=== PATIENT | male | born 1985 | race Caucasian/White ===

== ENCOUNTER 2016-09-05 13:22 | Emergency (ER) | payer OTHER ==
[~2016-09-05] VITALS: Ht 182.9 cm; Wt 77.3 kg
[~2016-09-05 13:22] MED LIST: ERGOCALCIF50000 UNIT PO; FLEXERIL5 MG PO; IBUPROFEN200 M1 PO; LISINOPRIL10 MG PO; NAPROXEN500 M2 PO; NAPROXEN500 MG PO; NOHOMEMEDS; OXECTA7.5 MG PO; OXYCODONE5 MG PO
[2016-09-05 15:00] LABS: MCH 33.6 PG (29.0-34.0); MCHC 34.9 G/DL (30.0-36.0); MCV 96.2 FL (86-99); MEAN PLAT.VOLUME 9.8 uM^3 (9.0-12.4); PLATELET COUNT 240 K/uL (156-360); RBC DIS.WIDTH-CV 12.4 % (11.8-14.6); RBC DIS.WIDTH-SD 43.9 % (39-53); RED BLOOD COUNT 4.26 M/uL (4.00-5.50); WHITE BLOOD COUNT 7.6 K/uL (4.1-10.2)
[2016-09-05 15:17] LABS: CHLORIDE 102 mEq/L (99-109); SODIUM 136 mEq/L (136-147)
[2016-09-05 15:19] LABS: GLUCOSE 76 mg/dL (70-99)
[2016-09-05 15:20] LABS: ANION GAP 11 MEQ/L (2-14)
[2016-09-05 15:21] LABS: TOTAL BILIRUBIN 0.5 mg/dL (0.0-1.0)
[2016-09-05 15:22] LABS: ALKALINE PHOSPHATASE 62 IU/L (3-129)
[2016-09-05 15:23] LABS: GFR ESTIMATE (CALCULATED) > 59 mL/min/
[2016-09-05 15:24] LABS: UREA NITROGEN (BUN) 9 mg/dL (9-23)
[2016-09-05 15:26] LABS: LIPASE 69 U/L (1.0-51.0)
[2016-09-05 16:11] LABS: ADD MIUA? NO; BILIRUBIN NEGATIVE; BLOOD NEGATIVE; COLOR STRAW ((YELLOW)); GLUCOSE (STRIP) NEGATIVE; KETONES NEGATIVE; LEUKOCYTES NEGATIVE; NITRITE NEGATIVE; PROTEIN (STRIP) NEGATIVE; SPECIFIC GRAVITY 1.003 (1.000-1.030); UCUL ADDED? NO; UROBILINOGEN 0.2 MG/DL (0.2-1.0)
[2016-09-05] MEDS ORDERED: PRILOSEC20 MG PO (16:45)
[2016-09-05] MEDS ORDERED: ZOFRAN ODT4 MG PO (16:45)
[2016-09-05] MEDS ORDERED: MULTIGEN FOLIC1 EACH PO (16:45)
[2016-09-05] MEDS ORDERED: ZESTRIL10 MG PO (16:45)
[2016-09-05 17:11] VITALS: BP 158/98
== END 2016-09-05 17:14 | disposition home or self-care (01) ==
LOC: EME 13:22
DX: R74.8 Abnormal levels of other serum enzymes (principal); R20.2 Paresthesia of skin; F10.10 Alcohol abuse, uncomplicated; F17.200 Nicotine dependence, unspecified, uncomplicated; I10 Essential (primary) hypertension; S80.12XA Contusion of left lower leg, initial encounter; X58.XXXA Exposure to other specified factors, initial encounter
CPT/HCPCS: 80053; 81003; 83690; 85027; 99281; 99284

== ENCOUNTER 2017-09-01 22:23 | Emergency (ER) | payer OTHER ==
[~2017-09-01] VITALS: Ht 182.9 cm; Wt 74.7 kg
[~2017-09-01 22:23] MED LIST changes: +MULTIGEN FOLIC1 EACH PO; +PRILOSEC20 MG PO; +ZESTRIL10 MG PO; +ZOFRAN ODT4 MG PO
[2017-09-02 00:06] VITALS: BP 111/63
== END 2017-09-02 00:08 | disposition home or self-care (01) ==
LOC: EME 22:23
DX: S90.31XA Contusion of right foot, initial encounter (principal); W23.0XXA Caught, crushed, jammed, or pinched between moving objects, initial encounter; Y92.59 Other trade areas as the place of occurrence of the external cause; Y99.0 Civilian activity done for income or pay
CPT/HCPCS: 73630; 99281; 99283